=== PATIENT | female | born 1985 | race Caucasian/White ===

== ENCOUNTER 2020-10-28 11:34 | Emergency (ER) | payer SELFPAY | END 2020-10-28 12:15 | disposition left against medical advice (07) | LOC: ER1 11:34 | DX: Z53.21 Procedure and treatment not carried out due to patient leaving prior to being seen by health care provider (principal) ==

== ENCOUNTER 2021-02-17 08:55 | Emergency (ER) | payer SELFPAY | END 2021-02-17 09:01 | disposition left against medical advice (07) | LOC: ER1 08:55 | DX: Z53.21 Procedure and treatment not carried out due to patient leaving prior to being seen by health care provider (principal) ==

== ENCOUNTER 2021-03-01 01:46 | Emergency (ER) | payer OTHER | END 2021-03-01 02:48 | LOC: ER1 01:46 | DX: S91.115A Laceration without foreign body of left lesser toe(s) without damage to nail, initial encounter (principal); F17.210 Nicotine dependence, cigarettes, uncomplicated; F15.10 Other stimulant abuse, uncomplicated; Z23 Encounter for immunization; W22.8XXA Striking against or struck by other objects, initial encounter; Y92.410 Unspecified street and highway as the place of occurrence of the external cause | CPT/HCPCS: 12001; 73630; 90471; 90715; 96372; 99283; J2060 ==

== ENCOUNTER 2021-03-03 08:43 | Emergency (ER) | payer SELFPAY ==
[2021-03-03] MEDS ORDERED: BACITRACIN3.5 GM TOP (09:22)
== END 2021-03-03 09:20 | disposition home or self-care (01) ==
LOC: ER1 08:43
DX: S61.215D Laceration without foreign body of left ring finger without damage to nail, subsequent encounter (principal); W01.0XXD Fall on same level from slipping, tripping and stumbling without subsequent striking against object, subsequent encounter; F17.200 Nicotine dependence, unspecified, uncomplicated
CPT/HCPCS: 99282